=== PATIENT | female | born 1945 | race Caucasian/White ===

== ENCOUNTER 2021-10-26 08:15 | Inpatient (IN) | payer OTHER ==
[~2021-10-26] VITALS: Ht 152.4 cm; Wt 59.0 kg
[~2021-10-26 08:15] MED LIST: CATAFLAM50 MG PO; CEFADROXIL500 MG PO; GLUCOVANCE 5/501 TAB PO; PERCOCET 5/321 UDTAB PO; XARELTO10 MG PO
[2021-10-26] MEDS ORDERED: COZAAR100 MG PO (09:53)
[2021-10-26] MEDS ORDERED: PEPCID AC10 MG PO (09:53)
[2021-10-26] MEDS ORDERED: PREVACID30 M1 PO (09:54)
== END 2021-11-03 15:38 | DRG 470 ==
LOC: O/R 10-31 05:40 → SURG 10-31 05:40 → SURH 10-31 08:15 → SURG 10-31 10:39 → SURH 10-31 19:30 → SURG 11-03 15:38
PROVIDERS: ADMIT Orthopaedic Surgery; ATTEND Orthopaedic Surgery
PROC: 0SRC0J9 Replacement of Right Knee Joint with Synthetic Substitute, Cemented, Open Approach (ICD-10-PCS; principal; 2021-10-31 19:30)
PROC: 30233N1 Transfusion of Nonautologous Red Blood Cells into Peripheral Vein, Percutaneous Approach (ICD-10-PCS; 2021-11-02)
DX: M17.11 Unilateral primary osteoarthritis, right knee (principal); D62 Acute posthemorrhagic anemia; M22.11 Recurrent subluxation of patella, right knee; M81.0 Age-related osteoporosis without current pathological fracture

== ENCOUNTER 2021-11-17 13:17 | Emergency (ER) | payer OTHER ==
[~2021-11-17] VITALS: Ht 154.9 cm; Wt 54.4 kg
[~2021-11-17 13:17] MED LIST changes: +COZAAR100 MG PO; +PEPCID AC10 MG PO; +PREVACID30 M1 PO
[2021-11-17] MEDS ORDERED: METFORMIN PO (13:23)
[2021-11-17] MEDS ORDERED: COZAAR100 MG PO (13:23)
[2021-11-17] MEDS ORDERED: ELIQUIS2.5 MG PO (13:24)
[2021-11-17] MEDS ORDERED: LEVOFLOXACIN750 MG PO (13:24)
== END 2021-11-17 19:31 | disposition home or self-care (01) ==
LOC: ER 13:17
DX: R53.1 Weakness (principal); E86.0 Dehydration; E11.9 Type 2 diabetes mellitus without complications; Z79.84 Long term (current) use of oral hypoglycemic drugs; I10 Essential (primary) hypertension; Z20.822 Contact with and (suspected) exposure to COVID-19

== ENCOUNTER 2024-01-28 05:45 | Day surgery (SDC) | payer OTHER ==
[2024-01-24 13:47] VITALS: BP 170/80
[~2024-01-28] VITALS: Ht 160 cm; Wt 61.2 kg
[~2024-01-28 05:45] MED LIST changes: +ELIQUIS2.5 MG PO; +HYDROCHLOROTHIA25 MG PO; +LEVOFLOXACIN750 MG PO; +LEVOTHYROXINE25 MCG PO; +METFORMIN HCL850 MG; +METFORMIN PO
[2024-01-28] MEDS ORDERED: CEFAZOLIN SODIUM 1,000 MG VIAL ONE (11:07)
[2024-01-28] MEDS ORDERED: VANCOMYCIN HCL 1,000 MG VIAL ONE (12:48)
[2024-01-28] MEDS ORDERED: MACROBID 100 M100 MG PO (13:33)
[2024-01-28] MEDS ORDERED: TRAM1TAB98 PO (13:33)
[2024-01-28] MEDS ORDERED: ENALAPRILAT DIHYDRATE 1.25 MG/ML VIAL IV ONE ×2 (15:52→16:39)
[2024-01-28] MEDS ORDERED: hydrALAZINE HCL 20 MG VIAL ONE (17:41)
== END 2024-01-28 18:55 | disposition home or self-care (01) ==
LOC: CIR.AMB 05:45
PROVIDERS: ATTEND Obstetrics & Gynecology Gynecology
DX: N81.5 Vaginal enterocele (principal); N81.6 Rectocele; N81.10 Cystocele, unspecified; I10 Essential (primary) hypertension